=== PATIENT | male | born 1955 | race Caucasian/White ===

== ENCOUNTER 2019-08-26 08:30 | Inpatient (IN) | payer MEDICARE ==
[~2019-08-26] VITALS: Ht 152.4 cm; Wt 108.0 kg
--- NOTE | ~2019-08-26 | EKG ---
[place] [address] ELECTROCARDIOGRAM REPORT Name: MAXWELL NOBLES Room: [address] ADM IN M.R.#: [id number] Admission: 08/26/19 Attend Phys: Liss Eason Discharge: Date of : 59 Report #: [id number] THIS REPORT FOR: //name// [facility] Test Date: 2019-08-28 Test Time: 04:45:19 Pat Name: MAXWELL NOBLES Department: Room: [address] Gender: M Electrician Apprentice Powerhouse: THOWARD3 : 1955 Requested By: Guanakito Pinon Order Number: [id number] Reading MD: Measurements Intervals [place] Rate: 105 P: [place]: QRS: 15 QRSD: 102 T: 130 QT: 357 QTc: 472 Interpretive Statements Atrial fibrillation Nonspecific T abnormalities, lateral leads Compared to ECG 08/27/2019 16:15:09 T-wave abnormality now present Left ventricular hypertrophy no longer present Early repolarization no longer present ST (T wave) deviation no longer present [email or web address] By: 0445 0445 Epiphany Epiphany, /EPI
[~2019-08-26 08:30] MED LIST: ASPIR 8181 MG PO; ASPIRIN EC81 M1 PO; BRILINTA90 MG PO; BUSPIRONE HCL10 MG PO; CELEBREX 200 M200 M1 PO; CHANTIX0.5 MG PO; HYDROCODONE-APA1 TA1 PO; LISINOPRIL5 MG PO; LOPRESSOR 50 MG50 M1 PO; LOPRESSOR25 PO; METFORMIN HCL500 MG PO; MULTIVITAMINS1 EAC7 PO; NITROGLYCERIN0.4 MG SL; NITROGLYCERIN0.4 MG SUBLING; NORCO 5-325 TA1 EACH PO; OXYCONTIN PO; OXYCONTIN20 M1 PO; PERCOCET 10-321 EAC1 PO; PERCOCET 7.5-31 EACH PO; PRILOSEC 20 MG20 MG PO; SIMVASTATIN40 MG PO; TRAMADOL 50 MG50 MG PO; VITAMIN D1000 UNI1; ZETIA10 MG PO
[2019-08-26 08:39] VITALS: BP 197/113
[2019-08-26] MEDS ORDERED: PREVACID30 MG PO (08:44)
[2019-08-26 08:55] LABS: ABSOLUTE BASOPHILS 0.1 thou/uL (0.0-0.2); ABSOLUTE EOSINOPHILS 0.3 thou/uL (0.0-0.7); ABSOLUTE LYMPHOCYTES 1.7 thou/uL (0.8-5.3); ABSOLUTE MONOCYTES 0.8 thou/uL (0.0-1.2); ABSOLUTE NEUTROPHILS 7.8 thou/uL (1.6-8.1); BASOPHILS 0.8 %; EOSINOPHILS 2.4 %; HEMATOCRIT 47.2 % (42.0-52.0); HEMOGLOBIN 15.8 gm/dL (14.0-18.0); LYMPHOCYTES 15.8 %; MCH 28.7 pg (26.0-34.0); MCHC 33.5 g/dL (28.0-37.0); MCV 85.6 fL (80.0-100.0); MONOCYTES 7.3 %; MPV 7.5 fl. (7.2-11.1); NUCLEATED RBCS 0 /100WBC; PLATELET COUNT* 279 thou/uL (150-400); POLYS 73.7 %; RBC 5.52 mil/uL (4.50-6.00); RDW-CV 14.1 % (10.5-14.5); WBC 10.6 thou/uL (4.0-11.0)
[2019-08-26 09:03] LABS: POTASSIUM 3.8 mmol/L (3.5-5.1)
[2019-08-26 09:13] LABS: ALBUMIN 4.1 g/dL (3.4-5.0); MAGNESIUM 1.7 mg/dL (1.8-2.4); TOTAL BILIRUBIN 0.3 mg/dL (<0.1-1.0)
[2019-08-26 13:00] VITALS: BP 161/78
[2019-08-26 13:22] VITALS: BP 176/94
[2019-08-26 14:52] LABS: CHOLESTEROL 197 mg/dL (<200); HDL CHOLESTEROL 56 mg/dL (>40); LDL CHOLESTEROL 117 mg/dL (<100); MAGNESIUM 1.5 mg/dL (1.8-2.4); SERUM ASSESSMENT Clear; TC:HDL 3.5 Ratio (Not establshd); TRIGLYCERIDE 123 mg/dL (<150); VLDL 25 mg/dL (<40)
--- NOTE | 2019-08-26 16:40 | 2DMMODE ---
[place] [address] 2 D/M-MODE ECHOCARDIOGRAM Name: MAXWELL NOBLES Room: [address] IN [facility]#: [id number] Admission: 08/26/19 Attend Phys: Liss stroud Sa Discharge: Date of : 59 Date of Service: 08/26/19 1639 Report #: [id number] THIS REPORT FOR: //name// APPROVED REPORT Study performed: 08/26/2019 15:51:29 EXAM: Comprehensive 2D, Doppler, and color-flow Echocardiogram Patient Location: In-Patient Room #: [facility] Status: routine BSA: 2.20 HR: 92 bpm BP: 176/94 mmHg Rhythm: NSR Other Information Study Quality: Good Indications Murmur 2D Dimensions IVSd: 15.00 (7-11mm) LVOT Diam: 19.95 (18-24mm) LVDd: 64.31 mm PWd: 12.69 (7-11mm) Ascending Ao: 39.75 (22-36mm) LVDs: 46.22 (25-40mm) Aortic Root: 38.65 mm Volumes Left Atrial Volume (Systole) LA ESV Index: 41.30 mL/m2 Aortic Valve AoV Peak Evgeny.: 3.42 m/s AO Peak Gr.: 46.85 mmHg LVOT Max P.79 mmHg AO Mean Gr.: 30.59 mmHg LVOT Mean P.65 mmHg LVOT Max V: 0.97 m/s AO V2 VTI: 67.05 cm LVOT Mean V: 0.58 m/s RITA (VTI): 0.89 cm2 LVOT V1 VTI: 19.11 cm AI Burt: 4.68 m/s2 AI PHT: 285.76 ms Mitral Valve E/A Ratio: 0.39 [place] [address] 2 D/M-MODE ECHOCARDIOGRAM Name: MAXWELL NOBLES Room: [address] IN [facility].#: [id number] Admission: 08/26/19 Attend Phys: Liss stroud Sa Discharge: Date of : 59 Date of Service: 08/26/19 1639 Report #: [id number] MV Decel. Time: 124.32 ms MV E Max Evgeny.: 0.44 m/s MV PHT: 36.05 ms MVA (PHT): 6.10 cm2 TDI E/Medial E': 8.80 Medial E' Evgeny.: 0.05 m/s Pulmonary Valve PV Peak Evgeny.: 1.00 m/s PV Peak Gr.: 3.99 mmHg Tricuspid Valve RAP Estimate: 5.00 mmHg TR Peak Gr.: 27.54 mmHg RVSP: 32.00 mmHg PA Pressure: 32.00 mmHg Left Ventricle The left ventricle is normal size. There is normal LV segmental wall motion. Mild concentric left ventricular hypertrophy. Left ventricular systolic function is normal. LVEF is 50-55%. Transmitral Doppler flow pattern suggests impaired LV relaxation. Right Ventricle The right ventricle is normal size. The right ventricular systolic function is normal. Atria Left atrium is moderately dilated. Right atrium is mildly dilated. Aortic Valve Severe aortic valve sclerosis. Moderate aortic regurgitation. Severe aortic stenosis. Mitral Valve The mitral valve is normal in structure. Moderate mitral regurgitation. No evidence of mitral valve stenosis. Tricuspid Valve The tricuspid valve is normal in structure. Trace tricuspid regurgitation. Mild pulmonary hypertension. Pulmonic Valve The pulmonary valve is normal in structure. There is no pulmonic [place] [address] 2 D/M-MODE ECHOCARDIOGRAM Name: MAXWELL NOBLES Room: [address]#: [id number] Admission: 08/26/19 Attend Phys: Liss stroud Sa Discharge: Date of : 59 Date of Service: 08/26/19 1639 Report #: [id number] Great Vessels The aortic root is normal in size. IVC is normal in size and collapses >50% with inspiration. Pericardium There is no pericardial effusion. <Conclusion> The left ventricle is normal size. Mild concentric left ventricular hypertrophy. Left ventricular systolic function is normal. LVEF is 50-55%. Transmitral Doppler flow pattern suggests impaired LV relaxation. Left atrium is moderately dilated. Right atrium is mildly dilated. Severe aortic valve sclerosis. Moderate aortic regurgitation. Severe aortic stenosis. Moderate mitral regurgitation. Trace tricuspid regurgitation. Mild pulmonary hypertension. IVC is normal in size and collapses >50% with inspiration. <ELECTRONICALLY SIGNED> By: Guanakito iPnon MD, FACC 08/26/19 1639 1639 1639 Guanakito Pinon MD, FACC /INF
--- NOTE | 2019-08-26 16:58 | EKG ---
[place] [address] ELECTROCARDIOGRAM REPORT Name: MAXWELL NOBLES Room: [address] IN M.R.#: [id number] Admission: 08/26/19 Attend Phys: Liss Eason Discharge: Date of : 59 Report #: [id number] THIS REPORT FOR: //name// [facility] ED Test Date: 2019-08-26 Test Time: 08:35:17 Pat Name: MAXWELL NOBLES Department: Room: [facility] Gender: M Mammographer: : 1955 Requested By: Víctor Kauffman Order Number: [id number] MD: Guanakito Pinon Measurements Intervals [place] Rate: 108 P: 45 OR: 190 QRS: -15 QRSD: 103 T: 107 QT: 346 QTc: 464 Interpretive Statements Sinus tachycardia Multiple ventricular premature complexes LVH with secondary repolarization abnormality Compared to ECG 09/10/2016 08:11:15 Ventricular premature complex(es) now present Early repolarization now present Sinus rhythm no longer present Electronically Signed On 08-26-2019 16:58:28 INSTRUCTIONAL TECHNOLOGY TEACHER by Guanakito Pinon [email or web address] <ELECTRONICALLY SIGNED> By: Guanakito Pinon MD, FACC 08/26/19 1658 0835 0835 Guanakito Pinon MD, FAC /EPI
[2019-08-26 17:54] VITALS: BP 179/98
[2019-08-26 20:01] LABS: AMP/METHAMP Negative (Negative); BARBITURATES Negative (Negative); BENZODIAZEPINES Negative (Negative); COCAINE Negative (Negative); METHADONE Negative (Negative); OPIATES POSITIVE (Negative); PCP Negative (Negative); THC Negative (Negative)
[2019-08-26 20:30] VITALS: BP 108/65
[2019-08-27] VITALS (16 sets, daily range): BP systolic 98–168; BP diastolic 52–78
[2019-08-27 12:19] LABS: CALCIUM 9.1 mg/dL (8.5-10.1); CREATININE 0.8 mg/dL (0.6-1.3); MAGNESIUM 1.6 mg/dL (1.8-2.4)
--- NOTE | 2019-08-27 16:05 | EKG ---
[place] [address] ELECTROCARDIOGRAM REPORT Name: MAXWELL NOBLES Room: [address] ADM IN M.R.#: [id number] Admission: 08/26/19 Attend Phys: Liss Eason Discharge: Date of : 59 Report #: [id number] THIS REPORT FOR: //name// [facility] Test Date: 2019-08-27 Test Time: 11:37:19 Pat Name: MAXWELL GIULIANO Department: Room: [address] Gender: M Production Line Mechanic: : 1955 Requested By: Guanakito Pinon Order Number: [id number] Reading MD: Sherman Go Measurements Intervals [place] Rate: 63 P: 5 NV: 173 QRS: 0 QRSD: 104 T: 86 QT: 387 QTc: 397 Interpretive Statements Sinus rhythm Probable left ventricular hypertrophy Baseline wander in lead(s) V1 Compared to ECG 08/26/2019 08:35:17 ST (T wave) deviation now present Myocardial infarct finding now present Sinus tachycardia no longer present Ventricular premature complex(es) no longer present Early repolarization persists Electronically Signed On 08-27-2019 16:05:27 QUILL FIXER by Sherman Go [email or web address] <ELECTRONICALLY SIGNED> By: Sherman Go MD, FACC 08/27/19 1605 1137 1137 Sherman Go MD, FAC /EPI
--- NOTE | 2019-08-27 18:22 | EKG ---
[place] [address] ELECTROCARDIOGRAM REPORT Name: MAXWELL NOBLES Room: [address] ADM IN M.R.#: [id number] Admission: 08/26/19 Attend Phys: Liss Eason Discharge: Date of : 59 Report #: [id number] THIS REPORT FOR: //name// [facility] Test Date: 2019-08-27 Test Time: 16:15:09 Pat Name: MAXWELL GIULIANO Department: Room: [address] Gender: M Cheese Blender: : 1955 Requested By: Liss Flores Order Number: [id number] Alden MD: Guanakito Pinon Measurements Intervals [place] Rate: 111 P: [place]: QRS: -7 QRSD: 102 T: 123 QT: 335 QTc: 455 Interpretive Statements Atrial fibrillation LVH with secondary repolarization abnormality Anterior ST elevation, probably due to LVH Compared to ECG 08/27/2019 11:37:19 Early repolarization now present ST (T wave) deviation now present Sinus rhythm no longer present Electronically Signed On 08-27-2019 18:22:04 VIDEO GAME DESIGNER by Guanakito Pinno [email or web address] <ELECTRONICALLY SIGNED> By: Guanakito Pinon MD, FACC 08/27/19 1822 1615 1615 Guanakito Pinon MD, FAC /EPI
[2019-08-28] VITALS: BP 120/63
[2019-08-28 02:07] LABS: GLYCOHEMOGLOBIN (HGB A1C) 8.6 % (4.8-5.6)
[2019-08-28 04:00] VITALS: BP 124/74
[2019-08-28 05:25] LABS: HEMATOCRIT 40.4 % (42.0-52.0); MCHC 32.7 g/dL (28.0-37.0); MCV 85.7 fL (80.0-100.0); MPV 8.2 fl. (7.2-11.1); RBC 4.71 mil/uL (4.50-6.00); RDW-CV 14.7 % (10.5-14.5); WBC 10.7 thou/uL (4.0-11.0)
[2019-08-28 05:31] LABS: HEMOGLOBIN 13.2 gm/dL (14.0-18.0)
[2019-08-28 05:47] LABS: ALBUMIN 3.2 g/dL (3.4-5.0); CALCIUM 8.6 mg/dL (8.5-10.1); CREATININE 0.8 mg/dL (0.6-1.3); POTASSIUM 3.7 mmol/L (3.5-5.1); TOTAL BILIRUBIN 0.6 mg/dL (<0.1-1.0)
[2019-08-28 07:30] VITALS: BP 123/71
[2019-08-28 07:58] VITALS: BP 123/71
--- NOTE | 2019-08-28 10:17 | CARD ---
[address] [address] CARDIAC CATH REPORT Name: MAXWELL NOBLES Room: [address] IN [facility]#: [id number] Admission: 08/26/19 Attend Phys: Liss stroud Wells Discharge: Date of : 59 Report #: [id number] THIS REPORT FOR: //name// APPROVED REPORT Study performed: 08/27/2019 08:44:40 Patient Details Patient Status: In-Patient Room #: The patient is a 64 year-old male Event Personnel Guanakito Pinon Bioengineer, Sherman Go Digester Capper, Maci Flowers RN Billet Bed Operator, Mackenzie Thompson RTR Scrub, Dakota Howard PIG MACHINE SUPERVISOR Scrub, Lisa Lugo RTR Monitor Procedures Performed Art Access - R femoral artery, Left Heart Cath w/or w/o Coronaries , LHC NAZIA Place w/wo Plasty Single LAD , Hemostasis w/ Angioseal Admission/Lab Medications/Medications given during procedure Angiomax IV bolus 15 mg per kg, Angiomax Drip IV 34.92 ml per hr, Ticagrelor PO 180 mg Procedure Narrative The patient was brought electively to the Cardiac Catheterization Laboratory and was prepped and draped in a sterile manner. The right femoral groin area was infiltrated with 2% Lidocaine subcutaneous anesthesia. A 6fr Ultimum Sheath sheath was inserted into the right femoral artery. Coronary angiography was performed using coronary diagnostic catheters. The right coronary system was accessed and visualized with a 6F JR4 catheter. The left coronary system was accessed and visualized with a 6F JL4 catheter. The left ventricle was accessed and visualized with a 6F Pigtail catheter. Closure device was deployed with a Fr Angioseal STS 6Fr. The patient tolerated the procedure well and there were no complications associated with the procedure. Intraoperative Conscious Sedation Sedation start time: 09:46 Case end Time: 10:59 Fentanyl 125 mcg Versed 5 mg Fluoro Time: 23.7 [place] [address] CARDIAC CATH REPORT Name: MAXWELL NOBLES Room: [address]#: [id number] Admission: 08/26/19 Attend Phys: Liss Eason Discharge: Date of : 59 Report #: [id number] Dose: DAP [id number] cGycm2 4781 mGy Contrast Type and Amount: Visipaque 400 ml Coronary Angiography The patient's coronary anatomy is left dominant. Diagnostic Cath Left Main Normal LAD 80% narrowing proximally. 70% narrowing in the midportion. Diagonal 1 10% proximal narrowing. Circumflex Mild plaquing proximal. There is a 20% narrowing in the midportion. OM1 Calcified proximally without significant stenoses. OM2 Normal. OM3 Widely patent stents in the proximal portion. L PDA Normal. Right Coronary 50% ostial proximal narrowing of a nondominant right coronary artery. Hemodynamics The aortic pressure is 108/59 mmHg with a mean of 77 mmHg. The left ventricular pressure is 148/8 mmHg with a mean of mmHg. The left ventricular end diastolic pressure is 21 mmHg. PCI Technique Lesion Anticoagulation was achieved with Angiomax. Patient was preloaded with Angiomax IV bolus 15 mg per kg. Percutaneous coronary intervention was performed on the proximalmid left anterior descending artery. The lesion stenosis prior to intervention was 80% with MIKE 3 flow. A 6FR LAUNCHER EBU 4.0 Guide Catheter was used to engage the ostium. A BMW 190cm Interventional Guidewire was used to cross the lesion. BALLOON DILATION A Balloon catheter Trek RX 2.5 X 15 was inserted and inflated up to 14.00atm for 20seconds. Additional Inflation: 12.00atm for 16seconds. Additional Inflation: 14.00atm for 10seconds. Prowater Flex 180cm guidewire advanced down 1st diagonal artery. STENT DEPLOYMENT A drug-eluting stent 3.0/40 ORSIRO RX was inserted and inflated up to 10.00atm for 18seconds. Additional Inflation: 12.00atm for 8seconds. 2ND NAZIA stent: 3.0/13 ORSIRO RX NAZIA was inserted and inflated to 10 anthony, 14 anthony, and 14 anthony again. ; 2.5x9 orsiro to 12 [place] [address] CARDIAC CATH REPORT Name: MAXWELL NOBLES Room: [address]#: [id number] Admission: 08/26/19 Attend Phys: Liss Eason Discharge: Date of : 59 Report #: [id number] Final angiography reveals 0 % stenosis with MIKE 3 flow. Conclusion 1. Significant proximal and mid left anterior descending coronary stenoses. 2. Aortic stenosis. 3. Mildly elevated left ventricular end-diastolic pressure. 4. Successful percutaneous coronary intervention with deployment of 3 drug-eluting stents in the proximalmid LAD with 0% residual narrowing following stent deployment and MIKE-3 flow to the distal vessel Recommendations 1. Continue aggressive risk factor modification. 2. Percutaneous coronary intervention to the left anterior descending coronary artery. Diagnostic Cath Approved by: Guanakito Pinon MD Date/Time: 08/28/2019 10:15:47 <ELECTRONICALLY SIGNED> By: Sherman Go MD, [facility] 08/28/19 1017 1017 1017Sherman Go MD, [facility] /INF
[2019-08-28 11:39] VITALS: BP 135/73
--- NOTE | 2019-08-28 12:21 | EKG ---
[place] [address] ELECTROCARDIOGRAM REPORT Name: MAXWELL NOBLES Room: [address] ADM IN M.R.#: [id number] Admission: 08/26/19 Attend Phys: Liss Eason Discharge: Date of : 59 Report #: [id number] THIS REPORT FOR: //name// [facility] Test Date: 2019-08-28 Test Time: 04:45:19 Pat Name: MAXWELL GIULIANO Department: Room: [address] Gender: M Columnist/Commentator: THOWARD3 : 1955 Requested By: Liss Flores Order Number: [id number] Alden MD: Sherman Go Measurements Intervals [place] Rate: 105 P: MT: QRS: 15 QRSD: 102 T: 130 QT: 357 QTc: 472 Interpretive Statements Atrial fibrillation Nonspecific T abnormalities, lateral leads Compared to ECG 08/27/2019 16:15:09 T-wave abnormality now present Left ventricular hypertrophy no longer present Early repolarization no longer present ST (T wave) deviation no longer present Electronically Signed On 08-28-2019 12:21:19 POKER PROP PLAYER by Sherman Go [email or web address] <ELECTRONICALLY SIGNED> By: Sherman Go MD, FACC 08/28/19 1221 0445 0445 Sherman Go MD, FAC /EPI
--- NOTE | 2019-08-28 12:22 | EKG ---
[place] [address] ELECTROCARDIOGRAM REPORT Name: MAXWELL NOBLES Room: [address] ADM IN M.R.#: [id number] Admission: 08/26/19 Attend Phys: Liss Eason Discharge: Date of : 59 Report #: [id number] THIS REPORT FOR: //name// [facility] Test Date: 2019-08-28 Test Time: 09:41:12 Pat Name: MAXWELL NOBLES Department: Room: [address] Gender: M Geriatric Case Manager: : 1955 Requested By: Guanakito Pinon Order Number: [id number] Alden MD: Sherman Go Measurements Intervals [place] Rate: 70 P: 17 MT: 169 QRS: -1 QRSD: 100 T: 89 QT: 401 QTc: 433 Interpretive Statements Sinus rhythm Probable left atrial enlargement Left ventricular hypertrophy Nonspecific T abnormalities, lateral leads Anterior ST elevation, probably due to LVH Compared to ECG 08/27/2019 16:15:09 T-wave abnormality now present Atrial fibrillation no longer present Early repolarization no longer present ST (T wave) deviation still present Electronically Signed On 08-28-2019 12:22:42 CRAFT DEMONSTRATOR by Sherman Go [email or web address] <ELECTRONICALLY SIGNED> By: Sherman Go MD, FACC 08/28/19 1222 Sherman Go MD, [facility] /EPI
[2019-08-28 12:30] VITALS: BP 135/73
[2019-08-28] MEDS ORDERED: BRILINTA90 MG PO ×2 (14:13→15:19)
[2019-08-28] MEDS ORDERED: XARELTO20 MG PO (14:14)
[2019-08-28] MEDS ORDERED: TOPROL XL25 MG PO ×2 (14:15→15:20)
[2019-08-28] MEDS ORDERED: METFORMIN HCL500 M3 PO (14:18)
[2019-08-28] MEDS ORDERED: NITROSTAT0.4 MG SUBLING (15:19)
== END 2019-08-28 15:45 | disposition home or self-care (01) | DRG 246 ==
LOC: M.ERS 08:30 → M.2W 09:51 → M.TBA-ER 09:51 → M.2W 13:13
PROVIDERS: Emergency Medicine Emergency Medical Services; Internal Medicine; Internal Medicine Cardiovascular Disease; ADMIT Family Medicine
DX: I25.110 Atherosclerotic heart disease of native coronary artery with unstable angina pectoris (principal); I50.33 Acute on chronic diastolic (congestive) heart failure; D68.59 Other primary thrombophilia; M19.90 Unspecified osteoarthritis, unspecified site; K21.9 Gastro-esophageal reflux disease without esophagitis; F41.9 Anxiety disorder, unspecified; I11.0 Hypertensive heart disease with heart failure; E11.9 Type 2 diabetes mellitus without complications; I48.0 Paroxysmal atrial fibrillation; F32.9 Major depressive disorder, single episode, unspecified; E78.5 Hyperlipidemia, unspecified; I08.0 Rheumatic disorders of both mitral and aortic valves; Z96.641 Presence of right artificial hip joint; Z79.84 Long term (current) use of oral hypoglycemic drugs; Z95.5 Presence of coronary angioplasty implant and graft; Z79.82 Long term (current) use of aspirin; Z79.899 Other long term (current) drug therapy; Z87.891 Personal history of nicotine dependence; Z87.442 Personal history of urinary calculi; I25.2 Old myocardial infarction; Z91.19 Patient's noncompliance with other medical treatment and regimen; Z79.01 Long term (current) use of anticoagulants

== ENCOUNTER 2019-09-10 11:54 | Observation (INO) | payer MEDICARE ==
[~2019-09-10] VITALS: Ht 152.4 cm; Wt 99.8 kg
[~2019-09-10 11:54] MED LIST changes: +METFORMIN HCL500 M3 PO; +NITROSTAT0.4 MG SUBLING; +PREVACID30 MG PO; +TOPROL XL25 MG PO; +XARELTO20 MG PO
[2019-09-10 11:59] VITALS: BP 208/114
[2019-09-10] MEDS ORDERED: TRAZODONE 150150 M1 PO (12:02)
[2019-09-10] MEDS ORDERED: OMEPRAZOLE 20 M20 M1 PO (12:02)
[2019-09-10 12:30] LABS: ABSOLUTE EOSINOPHILS 0.4 thou/uL (0.0-0.7); ABSOLUTE LYMPHOCYTES 1.9 thou/uL (0.8-5.3); ABSOLUTE MONOCYTES 0.6 thou/uL (0.0-1.2); ABSOLUTE NEUTROPHILS 3.9 thou/uL (1.6-8.1); BASOPHILS 0.6 %; EOSINOPHILS 5.6 %; HEMATOCRIT 42.3 % (42.0-52.0); HEMOGLOBIN 13.9 gm/dL (14.0-18.0); LYMPHOCYTES 27.6 %; MCH 28.2 pg (26.0-34.0); MCHC 32.9 g/dL (28.0-37.0); MCV 85.8 fL (80.0-100.0); MONOCYTES 8.4 %; MPV 7.6 fl. (7.2-11.1); NUCLEATED RBCS 0 /100WBC; PLATELET COUNT* 337 thou/uL (150-400); POLYS 57.8 %; RBC 4.94 mil/uL (4.50-6.00); RDW-CV 14.7 % (10.5-14.5); WBC 6.8 thou/uL (4.0-11.0)
[2019-09-10 12:46] LABS: CALCIUM 9.8 mg/dL (8.5-10.1); POTASSIUM 3.6 mmol/L (3.5-5.1)
[2019-09-10 12:59] LABS: MAGNESIUM 1.6 mg/dL (1.8-2.4); TOTAL BILIRUBIN 0.4 mg/dL (<0.1-1.0); TOTAL PROTEIN 8.3 g/dL (6.4-8.2)
--- NOTE | 2019-09-10 15:57 | NUR ---
REPORT GIVEN TO JAYA ROBINS WHO IS TO ASSUME PT CARE INPATIENT NURSE.
[2019-09-10 15:58] VITALS: BP 146/75
[2019-09-10 16:30] VITALS: BP 156/82
--- NOTE | 2019-09-10 16:53 | EKG ---
[place] [address] ELECTROCARDIOGRAM REPORT Name: MAXWELL NOBLES Room: [address] ADM IN .R.#: [id number] Admission: 09/10/19 Attend Phys: Kan Cochran MD Discharge: Date of : 59 Report #: [id number] THIS REPORT FOR: //name// [facility] ED Test Date: 2019-09-10 Test Time: 11:59:15 Pat Name: MAXWELL NOBLES Department: Room: [facility] Gender: M Front Desk Assistant: KARINE : 1955 Requested By: Víctor Kauffman Order Number: [id number] MD: Sherman Go Measurements Intervals [place] Rate: 103 P: 40 [place]: 192 QRS: -11 QRSD: 104 T: 103 QT: 354 QTc: 464 Interpretive Statements Sinus tachycardia Left atrial enlargement Borderline repolarization abnormality Compared to ECG 08/28/2019 09:41:12 Sinus rate has increased Left ventricular hypertrophy no longer present T-wave abnormality no longer present ST (T wave) deviation no longer present Electronically Signed On 09-10-2019 16:53:15 GRAD[employer]ATE SCHO[employer] DEAN by Sherman Go [email or web address] <ELECTRONICALLY SIGNED> By: Sherman Go MD, FAC 09/10/19 1653 1159 1159 Sherman Go MD, FAC /EPI
--- NOTE | 2019-09-10 18:09 | NUR ---
ASSUMED PT CARE. REPORT RECEIVED FROM ER NURSE. PT IS AOX4. ON RA. DENIES SOB. COMPLAINS OF BACK PAIN WHICH IS CHRONIC.OXY GIVEN. DENIES CHEST PAIN. UP AD ANGEL. ACCUCHECK. VSS. TRACING SR ON MARKETING REGIONAL CONSULTANT. HAS GOOD APPETITE. CALL LIGHT AT REACH. ADMISSION ASSESSMENT AND HS DONE AT BEDSIDE. OXYGEN TUBING PLACED IN ROOM FOR NIGHT USE NEEDED. WILL CONTINUE TO MONITOR PT
[2019-09-10 20:46] VITALS: BP 125/78
[2019-09-10 22:23] VITALS: BP 152/89
[2019-09-11 00:11] VITALS: BP 132/70
[2019-09-11 04:00] VITALS: BP 109/63
[2019-09-11 04:58] LABS: HEMATOCRIT 37.8 % (42.0-52.0); HEMOGLOBIN 12.7 gm/dL (14.0-18.0); MCH 28.4 pg (26.0-34.0); MCHC 33.5 g/dL (28.0-37.0); MCV 84.8 fL (80.0-100.0); RBC 4.46 mil/uL (4.50-6.00); RDW-CV 14.4 % (10.5-14.5); WBC 8.1 thou/uL (4.0-11.0)
[2019-09-11 05:12] LABS: CALCIUM 9.2 mg/dL (8.5-10.1); CREATININE 0.9 mg/dL (0.6-1.3); MAGNESIUM 1.7 mg/dL (1.8-2.4); POTASSIUM 3.8 mmol/L (3.5-5.1)
--- NOTE | 2019-09-11 07:36 | NUR ---
Pt reports he had a "brief panic attack" last pm. Requested Xanax. Had scheduled dose of Brilinta with Xanax. Approx 15 minutes later, pt reports he feels shaky and sweaty. BG mid 100s; BP 152/89. Pt states he first started having SOA following first dose of Brilinta during last admission when he had 3 cardiac stents placed. Pt's came to stay with pt overnight per pt request. Pt states he had some shortness of air overnight, but reports he slept well until lab came into room and woke him. VSS. NPO since [place] for Cardiology consult. States he is hopeful of being discharged today, but wants to figure out why he is having these episodes. Will continue to monitor.
[2019-09-11 08:00] VITALS: BP 152/79
--- NOTE | 2019-09-11 08:45 | CON ---
[address] [address] CONSULTATION Name: MAXWELL NOBLES Room: [address] IN M.R.#: [id number] Admission: 09/10/19 Attend Phys: Kan Cochran MD Discharge: Date of : 59 Report #: [id number] THIS REPORT FOR: //name// CC: Tyrel Delgado MD [facility] Kan Cochran INDICATION: Dyspnea and orthopnea. HISTORY OF PRESENT ILLNESS: The patient is a 64-year-old gentleman who was recently hospitalized with progressive chest pain. By catheterization, he was found to have significant stenoses involving the proximal to mid left anterior descending coronary artery, for which he received a single drug-eluting stent. The patient's post-stent recovery was unremarkable. He was placed on Brilinta. He is on Xarelto as he has a history of recent episode of atrial fibrillation. He has been tolerating this combination without bleeding problems. He has been having some increased episodes of shortness of breath over the last couple of days. His initial cardiac enzymes are unremarkable. His NT-pro-BNP was elevated at approximately 1400. He has chronic diastolic dysfunction and aortic stenosis as well. CARDIAC RISK FACTORS: Include dyslipidemia and hypertension. PAST MEDICAL HISTORY: 1. Coronary artery disease with percutaneous coronary intervention on several occasions in the past, most recently approximately 2 weeks ago. 2. Hypertension. 3. Dyslipidemia. 4. Type 2 diabetes mellitus. 5. Mitral insufficiency. 6. Moderate aortic regurgitation. 7. Moderate aortic stenosis. 8. Nephrolithiasis. 9. GERD. PAST SURGICAL HISTORY: 1. Tonsillectomy. 2. Neuroma removed from foot. 3. Right hip replacement in 2003. FAMILY HISTORY: Noncontributory. SOCIAL HISTORY: The patient quit smoking over a year ago. He drinks alcohol on occasion. PHYSICAL EXAMINATION: [place] [address] CONSULTATION Name: MAXWELL NOBLES Colby Room: [address]#: [id number] Admission: 09/10/19 Attend Phys: Kan Cochran MD Discharge: Date of : 59 Report #: [id number] VITAL SIGNS: Blood pressure 149/70, pulse 66 and regular. GENERAL: This is a pleasant gentleman who is in no distress. HEENT: Head is normocephalic, atraumatic. Extraocular muscles are intact. Mucous membranes are moist. NECK: Shows no jugular venous distention. CHEST: Reveals clear lung vasquez. CARDIOVASCULAR: Reveals a regular rhythm with a grade 2/6 systolic ejection murmur heard throughout the precordium. ABDOMEN: Reveals normal bowel sounds. The abdomen is soft and nontender. EXTREMITIES: Shows no edema. Peripheral pulses palpable. SKIN: Warm and dry. DIAGNOTIC IMAGING AND LABORATORY DATA: Chest x-ray shows no acute process. Sodium 139, potassium 3.6, chloride 101, bicarbonate 29, BUN 5, creatinine 1.0, serum glucose 209. AST 27, lipase 44. Total bilirubin 0.4, calcium 9.8, phosphorus 3.5, magnesium 1.6, alkaline phosphatase 90, ALT 31, total protein 8.3, albumin 4.0. EGFR 76. Troponin less than 0.06. NT-proBNP 1473. White blood cell count 6.8, hemoglobin 13.9, platelet count 337,000. EKG shows sinus tachycardia with nonspecific ST-segment depression. IMPRESSION AND RECOMMENDATIONS: 1. Coronary artery disease, presently stable. He had recent stent placement and is on Brilinta. He is tolerating this without significant bleeding problems. I would not change analyst at this time. 2. Acute on chronic diastolic heart failure with elevated NT-pro-BNP. He received IV Lasix in the Emergency Room. We will follow I's and O's and consider repeat Lasix as needed. 3. Hypertension. Blood pressure appears to be relatively well controlled at this time. We will follow clinically. 4. Dyslipidemia. Fasting lipid profile results are pending. <ELECTRONICALLY SIGNED> By: Guanakito Pinon MD, FACC 09/11/19 0845 1548 [id number] Pinon MD, FACC /nt
[2019-09-11 12:00] VITALS: BP 136/69
[2019-09-11] MEDS ORDERED: EFFIENT10 MG PO (13:19)
--- NOTE | 2019-09-11 13:55 | NUR ---
ASSUMED PT CARE REPORT RECEIVED FROM NURSE PT IS AOX4 SR ON TELEMARKETING SUPERVISOR. ON RA. NO COMPLAINT. CARDIOLOGY SEE PT IN ROOM. BLOOD THINNER CHANGED TO PRASUGREL. 60 MG LOAD GIVENT TO PATIENT PRIOR TO DISCHARGE. IV LINE REMOVED. HEART MONITOR RETRIEVED. PT LEFT FLOOR AT 1350 ACCOMPANIED BY STAFF ON WHEELCHAIR WITH .
== END 2019-09-11 13:51 | disposition home or self-care (01) ==
LOC: M.ERS 11:54 → M.2W 14:58 → M.TBA-ER 14:58 → M.2W 16:15
PROVIDERS: Emergency Medicine Emergency Medical Services; ADMIT Internal Medicine
DX: I16.1 Hypertensive emergency (principal); I11.0 Hypertensive heart disease with heart failure; I50.33 Acute on chronic diastolic (congestive) heart failure; I34.0 Nonrheumatic mitral (valve) insufficiency; I25.110 Atherosclerotic heart disease of native coronary artery with unstable angina pectoris; T46.1X5A Adverse effect of calcium-channel blockers, initial encounter; E78.5 Hyperlipidemia, unspecified; E11.9 Type 2 diabetes mellitus without complications; G89.29 Other chronic pain; F11.20 Opioid dependence, uncomplicated; I48.0 Paroxysmal atrial fibrillation; E87.6 Hypokalemia; E83.42 Hypomagnesemia; D68.69 Other thrombophilia; Y92.89 Other specified places as the place of occurrence of the external cause; K21.9 Gastro-esophageal reflux disease without esophagitis; F41.9 Anxiety disorder, unspecified; F32.9 Major depressive disorder, single episode, unspecified; Z87.891 Personal history of nicotine dependence

== ENCOUNTER 2020-09-13 20:37 | Emergency (ER) | payer MEDICARE ==
[~2020-09-13] VITALS: Ht 180.3 cm; Wt 98.9 kg
[~2020-09-13 20:37] MED LIST changes: +EFFIENT10 MG PO; +OMEPRAZOLE 20 M20 M1 PO; +TRAZODONE 150150 M1 PO
[2020-09-13] MEDS ORDERED: ESOMEPRAZOLE MA20 MG PO (20:50)
[2020-09-13] MEDS ORDERED: [UNRECOGNIZED DRUG - REMARK] PO (20:52)
[2020-09-13] MEDS ORDERED: XANAX 0.5 MG0.5 M1 PO (20:53)
[2020-09-13] MEDS ORDERED: TELMISARTAN80 MG PO (20:53)
[2020-09-13 20:57] LABS: ABSOLUTE BASOPHILS 0.1 thou/uL (0.0-0.2); ABSOLUTE EOSINOPHILS 0.3 thou/uL (0.0-0.7); ABSOLUTE LYMPHOCYTES 2.6 thou/uL (0.8-5.3); ABSOLUTE MONOCYTES 0.8 thou/uL (0.0-1.2); ABSOLUTE NEUTROPHILS 5.1 thou/uL (1.6-8.1); BASOPHILS 0.9 %; EOSINOPHILS 2.9 %; HEMATOCRIT 42.9 % (42.0-52.0); HEMOGLOBIN 13.8 gm/dL (14.0-18.0); LYMPHOCYTES 29.3 %; MCH 25.6 pg (26.0-34.0); MCHC 32.1 g/dL (28.0-37.0); MCV 79.8 fL (80.0-100.0); MONOCYTES 9.1 %; MPV 7.7 fl. (7.2-11.1); NUCLEATED RBCS 0 /100WBC; PLATELET COUNT* 285 thou/uL (150-400); POLYS 57.8 %; RBC 5.38 mil/uL (4.50-6.00); RDW-CV 15.6 % (10.5-14.5); WBC 8.7 thou/uL (4.0-11.0)
[2020-09-13 21:05] LABS: CALCIUM 9.6 mg/dL (8.5-10.1); CREATININE 1.2 mg/dL (0.6-1.3); POTASSIUM 3.7 mmol/L (3.5-5.1)
[2020-09-13 21:07] LABS: APTT 28.3 Seconds (25.0-31.3); INR 0.9
[2020-09-13 21:30] LABS: ALBUMIN 4.1 g/dL (3.4-5.0); CK-MB MASS 2.1 ng/mL (<0.5-3.6); MAGNESIUM 1.9 mg/dL (1.8-2.4); TOTAL BILIRUBIN 0.4 mg/dL (<0.1-1.0); TOTAL PROTEIN 8.1 g/dL (6.4-8.2)
[2020-09-13 21:42] VITALS: BP 153/57
--- NOTE | 2020-09-14 10:46 | EKG ---
[place] [address] ELECTROCARDIOGRAM REPORT Name: MAXWELL NOBLES Room: [facility]#: [id number] Admission: 09/13/20 Attend Phys: Discharge: 09/13/20 Date of : 59 Date of Service: 09/13/202042 Report #: [id number] THIS REPORT FOR: //name// [facility] Test Date: 2020-09-13 Test Time: 20:43:34 Pat Name: MAXWELL NOBLES Department: Room: Gender: Director Of Purchasing: MARTIN : 1955 Requested By: Jonn Kohli Order Number: [id number] MD: El Delgado Measurements Intervals [place] Rate: 110 P: 24 [place]: 191 QRS: -30 QRSD: 104 T: 99 QT: 334 QTc: 452 Interpretive Statements Sinus tachycardia LVH with secondary repolarization abnormality Compared to ECG 09/10/2019 11:59:15 Left ventricular hypertrophy now present Atrial abnormality no longer present Electronically Signed On 09-14-2020 10:46:00 STORE GROUP MANAGER by El Delgado [email or web address] <ELECTRONICALLY SIGNED> By: El Delgado MD, FACC 09/14/20 1046 42 42 El Delgado MD, [facility] /EPI
== END 2020-09-13 21:43 | disposition home or self-care (01) ==
LOC: M.ERS 20:37
PROVIDERS: Family Medicine
DX: R07.89 Other chest pain (principal); M19.90 Unspecified osteoarthritis, unspecified site; K21.9 Gastro-esophageal reflux disease without esophagitis; I25.10 Atherosclerotic heart disease of native coronary artery without angina pectoris; E78.00 Pure hypercholesterolemia, unspecified; E11.9 Type 2 diabetes mellitus without complications; G89.29 Other chronic pain; F17.210 Nicotine dependence, cigarettes, uncomplicated; Z88.8 Allergy status to other drugs, medicaments and biological substances; Z90.89 Acquired absence of other organs; Z87.442 Personal history of urinary calculi